=== PATIENT | male | born 1950 | race African-American/Black ===

== ENCOUNTER 2016-04-17 02:27 | Inpatient (IN) | payer OTHER ==
[~2016-04-17] VITALS: Ht 144.8 cm; Wt 98.0 kg
[2016-04-17] VITALS (22 sets, daily range): BP systolic 73–128; BP diastolic 49–65
[~2016-04-17 02:27] MED LIST: CALCIUM ACETAT667 M2 PO; COUMADIN2 MG PO; COUMADIN5 MG PO; COZAAR25 MG PO; DIGOX125 MCG PO; DIGOXIN125 MCG PO; HYDROCODON-ACE1 EAC7 PO; KEFLEX500 MG PO; LOPRESSOR100 M1 PO; LOPRESSOR25 MG PO; LOPRESSOR50 MG PO; MECLIZINE HCL12.5 M1 PO; METOPROLOL TART25 MG PO; NEURONTIN100 MG PO; NORVASC10 MG PO; NOVOLOG MI100 UNIT/4 SC; OXYCODONE; PERCOCET 5/31 TABLET PO; SENSIPAR30 MG PO; ZOCOR5 MG PO
[2016-04-17] MEDS ORDERED: WARFARIN SODIUM1 MG PO (02:57)
[2016-04-17] MEDS ORDERED: GABAPENTIN100 MG PO (02:58)
[2016-04-17] MEDS ORDERED: LOPRESSOR25 MG PO (02:58)
[2016-04-17] MEDS ORDERED: OXYCODONE HCL5 MG PO (02:59)
[2016-04-17] MEDS ORDERED: VENTOLIN HFA18 GM IH (02:59)
[2016-04-17] MEDS ORDERED: SENSIPAR30 MG PO (03:00)
[2016-04-17 03:23] LABS: VENOUS PCO2 46 mm Hg (41-51)
[2016-04-17 03:33] LABS: CARBON DIOXIDE (BICARBONATE) > 40.0 MEQ/L (20-31)
[2016-04-17 03:35] LABS: CHLORIDE 91 mEq/L (99-109); POTASSIUM 3.4 mEq/L (3.7-5.4); SODIUM 138 mEq/L (136-147)
[2016-04-17 03:37] LABS: GLUCOSE 123 mg/dL (70-99)
[2016-04-17 03:38] LABS: ANION GAP 18 MEQ/L (2-14)
[2016-04-17 03:41] LABS: GFR ESTIMATE (CALCULATED) 16 mL/min/
[2016-04-17 03:42] LABS: UREA NITROGEN (BUN) 12 mg/dL (9-23)
[2016-04-17 03:44] LABS: TROP-I INTERPRETATION NEGATIVE; TROPONIN-I 0.04 ng/mL (0.0-0.30)
[2016-04-17 04:40] LABS: HEMATOCRIT 41.1 % (38.0-50.0); MCHC 32.8 G/DL (30.0-36.0); MCV 85.1 FL (86-99); RBC DIS.WIDTH-CV 16.9 % (11.8-14.6); RBC DIS.WIDTH-SD 52.2 % (39-53); RED BLOOD COUNT 4.83 M/uL (4.00-5.50)
[2016-04-17 04:49] LABS: WHITE BLOOD COUNT 6.9 K/uL (4.1-10.2)
[2016-04-17 05:23] LABS: HEMATOLOGY COMMENT 1 REV; PLATELET COUNT 102 K/uL (156-360)
[2016-04-17 08:56] LABS: METH RESISTANT S AUREUS PCR POSITIVE (NEGATIVE)
[2016-04-17 08:57] LABS: PROBE CHECK PASS
[2016-04-17 11:32] LABS: ALKALINE PHOSPHATASE 155 IU/L (3-129); DIRECT BILIRUBIN 1.5 mg/dL (0.0-0.3); MAGNESIUM 1.9 mg/dl (1.3-2.7); SAMPLE HEMOLYSIS CHECK 0; SAMPLE ICTERIC CHECK 1; SAMPLE LIPEMIA CHECK 0; TOTAL BILIRUBIN 3.4 MG/DL (0.0-1.0)
[2016-04-17 12:44] LABS: CK-MB 3.1 ng/mL (0.0-4.9)
[2016-04-17 12:46] LABS: CREATINE KINASE 110 IU/L (1-294); TOTAL CK 110 IU/L (1-294)
[2016-04-17 13:03] LABS: TROP-I INTERPRETATION POSITIVE
[2016-04-17 13:05] LABS: TROPONIN-I 1.14 ng/mL (0.0-0.30)
[2016-04-17 13:11] LABS: POINT-OF-CARE METER ID UU14174217
[2016-04-17 17:32] LABS: POINT-OF-CARE METER ID UU14174217
[2016-04-17 19:02] LABS: TROP-I INTERPRETATION POSITIVE
[2016-04-17 19:05] LABS: TROPONIN-I 1.65 ng/mL (0.0-0.30)
[2016-04-17 19:16] LABS: CK-MB 3.4 ng/mL (0.0-4.9)
[2016-04-17 19:39] LABS: CREATINE KINASE 101 IU/L (1-294); TOTAL CK 101 IU/L (1-294)
[2016-04-17 23:56] LABS: POINT-OF-CARE METER ID UU14174217
[2016-04-18] VITALS (19 sets, daily range): BP systolic 77–155; BP diastolic 50–97
[2016-04-18 00:37] LABS: CREATINE KINASE 120 IU/L (1-294); TOTAL CK 120 IU/L (1-294)
[2016-04-18 00:41] LABS: TROP-I INTERPRETATION POSITIVE
[2016-04-18 00:42] LABS: CK-MB 3.3 ng/mL (0.0-4.9)
[2016-04-18 00:51] LABS: TROPONIN-I 1.77 ng/mL (0.0-0.30)
[2016-04-18 04:51] LABS: BASOPHIL COUNT 0.1 K/uL (0-0.1); EOSINOPHIL (%) 3.2 % (0-5); EOSINOPHIL COUNT 0.2 K/uL (0-0.3); HEMATOCRIT 41.1 % (38.0-50.0); IMMATURE GRANULOCYTE (%) 0.4 % (0.0-0.7); IMMATURE GRANULOCYTE COUNT 0.2 K/uL; LYMPHOCYTE COUNT 0.9 K/uL (1.0-2.8); MCH 27.3 PG (29.0-34.0); MCHC 32.4 G/DL (30.0-36.0); MCV 84.4 FL (86-99); MEAN PLAT.VOLUME 12.3 uM^3 (9.0-12.4); MONOCYTE (%) 11.7 % (3-12); MONOCYTE COUNT 0.6 K/uL (0-0.8); NEUTROPHIL (%) 64.7 % (45-76); NEUTROPHIL COUNT 3.1 K/uL (1.8-6.4); PLATELET COUNT 130 K/uL (156-360); RBC DIS.WIDTH-CV 17.7 % (11.8-14.6); RBC DIS.WIDTH-SD 53.5 % (39-53); RED BLOOD COUNT 4.87 M/uL (4.00-5.50); WHITE BLOOD COUNT 4.7 K/uL (4.1-10.2)
[2016-04-18 05:03] LABS: CHLORIDE 93 mEq/L (99-109); POTASSIUM 3.6 mEq/L (3.7-5.4); SODIUM 139 mEq/L (136-147)
[2016-04-18 05:04] LABS: MAGNESIUM 1.9 mg/dL (1.3-2.7)
[2016-04-18 05:07] LABS: ANION GAP 12 MEQ/L (2-14); GLUCOSE 75 mg/dL (70-99)
[2016-04-18 05:09] LABS: GFR ESTIMATE (CALCULATED) 12 mL/min/
[2016-04-18 05:10] LABS: UREA NITROGEN (BUN) 20 mg/dL (9-23)
[2016-04-18 05:11] LABS: CK-MB 2.4 ng/mL (0.0-4.9)
[2016-04-18 05:12] LABS: CREATINE KINASE 118 IU/L (1-294); TOTAL CK 118 IU/L (1-294)
[2016-04-18 05:23] LABS: TROP-I INTERPRETATION POSITIVE
[2016-04-18 05:26] LABS: TROPONIN-I 1.53 ng/mL (0.0-0.30)
[2016-04-18 12:57] LABS: BASE EXCESS -1.4 mEq/L (-3 to +3); BICARBONATE 21.1 mEq/L (22-26); CARBOXY HGB 2.6 % (0-5); METHEMOGLOBIN 1.2 % (0-1.5); PCO2 29 mm Hg (35-45); PO2 320 mm Hg (80-100); pH 7.47 (7.35-7.45)
[2016-04-18 12:58] LABS: DEVICE VENT; FI02 100 %; MECHANICAL RATE 14 resp/min; MODE A/C; PEEP 5 CM/H20; SITE A LINE; TIDAL VOLUME 400 ML; TOTAL RESP RATE 30 resp/min
[2016-04-18 17:56] LABS: POINT-OF-CARE METER ID UU13113731
[2016-04-19] VITALS (11 sets, daily range): BP systolic 104–122; BP diastolic 52–65
[2016-04-19 06:14] LABS: ANION GAP 19 MEQ/L (2-14); CHLORIDE 92 MEQ/L (99-109); GFR ESTIMATE (CALCULATED) 11 mL/min/; MAGNESIUM 1.9 mg/dl (1.3-2.7); POTASSIUM 3.7 MEQ/L (3.7-5.4); SAMPLE HEMOLYSIS CHECK 0; SAMPLE ICTERIC CHECK 0; SAMPLE LIPEMIA CHECK 0; SODIUM 136 MEQ/L (136-147); UREA NITROGEN (BUN) 26 mg/dL (9-23)
[2016-04-19 06:15] LABS: GLUCOSE 150 mg/dL (70-99)
[2016-04-19 06:34] LABS: HEMATOLOGY COMMENT 1 REV; PLAT.SUFFICIENCY ADEQUATE
[2016-04-19 06:35] LABS: BASOPHIL COUNT 0.1 K/uL (0-0.1); EOSINOPHIL (%) 1.4 % (0-5); EOSINOPHIL COUNT 0.1 K/uL (0-0.3); HEMATOCRIT 44.9 % (38.0-50.0); IMMATURE GRANULOCYTE (%) 0.3 % (0.0-0.7); LYMPHOCYTE COUNT 1.4 K/uL (1.0-2.8); MCH 27.9 PG (29.0-34.0); MCHC 33.4 G/DL (30.0-36.0); MCV 83.5 FL (86-99); MEAN PLAT.VOLUME 11.9 uM^3 (9.0-12.4); MONOCYTE (%) 10.5 % (3-12); MONOCYTE COUNT 0.8 K/uL (0-0.8); NEUTROPHIL (%) 67.6 % (45-76); NEUTROPHIL COUNT 4.9 K/uL (1.8-6.4); PLATELET COUNT 195 K/uL (156-360); RBC DIS.WIDTH-CV 17.2 % (11.8-14.6); RBC DIS.WIDTH-SD 51.9 % (39-53); RED BLOOD COUNT 5.38 M/uL (4.00-5.50); WHITE BLOOD COUNT 7.2 K/uL (4.1-10.2)
[2016-04-19 12:50] LABS: TROP-I INTERPRETATION POSITIVE
[2016-04-19 13:00] LABS: POINT-OF-CARE METER ID UU14162636
[2016-04-19 18:28] LABS: POINT-OF-CARE METER ID UU14162636
[2016-04-19 21:21] LABS: TROP-I INTERPRETATION POSITIVE
[2016-04-19 21:24] LABS: TROPONIN-I 1.52 ng/mL (0.0-0.30)
[2016-04-20] VITALS (8 sets, daily range): BP systolic 0–126; BP diastolic 0–64
[2016-04-20 07:08] LABS: ANION GAP 20 MEQ/L (2-14); CHLORIDE 96 MEQ/L (99-109); GFR ESTIMATE (CALCULATED) 14 mL/min/; GLUCOSE 199 mg/dL (70-99); MAGNESIUM 1.9 mg/dl (1.3-2.7); POTASSIUM 3.9 MEQ/L (3.7-5.4); SAMPLE HEMOLYSIS CHECK 0; SAMPLE ICTERIC CHECK 0; SAMPLE LIPEMIA CHECK 0; SODIUM 137 MEQ/L (136-147); UREA NITROGEN (BUN) 20 mg/dL (9-23)
[2016-04-20 09:42] LABS: BASE EXCESS -3.4 mEq/L (-3 to +3); BICARBONATE 20.3 mEq/L (22-26); CARBOXY HGB 2.1 % (0-5); METHEMOGLOBIN 1.3 % (0-1.5); PCO2 32 mm Hg (35-45); pH 7.41 (7.35-7.45)
[2016-04-20 09:43] LABS: COMMENTS - BLOOD GASES C+; CONTINUOUS POS AIRWAY PRESSURE 5 cm H2O; DEVICE 840 VENTILATOR; FI02 35 %; MODE SPONT; PO2 89 mm Hg (80-100); PRES. SUPPORT 5 CM/H2O; SITE RT FEMORAL ALINE; TOTAL RESP RATE 24 resp/min
[2016-04-20 12:01] LABS: BASE EXCESS -4.4 mEq/L (-3 to +3); BICARBONATE 18.3 mEq/L (22-26); METHEMOGLOBIN 1.3 % (0-1.5); PCO2 27 mm Hg (35-45); PO2 103 mm Hg (80-100); pH 7.44 (7.35-7.45)
[2016-04-20 12:02] LABS: COMMENTS - BLOOD GASES C+; CONTINUOUS POS AIRWAY PRESSURE 5 cm H2O; DEVICE 840 VENTILATOR; FI02 35 %; MODE SPONT; PRES. SUPPORT 5 CM/H2O; SITE RT FEMORAL ALINE; TOTAL RESP RATE 23 resp/min
[2016-04-21] VITALS (10 sets, daily range): BP systolic 95–124; BP diastolic 51–71
[2016-04-21 05:04] LABS: CHLORIDE 100 mEq/L (99-109); MAGNESIUM 1.8 mg/dL (1.3-2.7); POTASSIUM 3.9 mEq/L (3.7-5.4); SODIUM 139 mEq/L (136-147)
[2016-04-21 05:06] LABS: GLUCOSE 164 mg/dL (70-99)
[2016-04-21 05:07] LABS: ANION GAP 18 MEQ/L (2-14)
[2016-04-21 05:10] LABS: GFR ESTIMATE (CALCULATED) 11 mL/min/; UREA NITROGEN (BUN) 27 mg/dL (9-23)
[2016-04-21 06:22] LABS: EOSINOPHIL (%) 1.7 % (0-5); EOSINOPHIL COUNT 0.1 K/uL (0-0.3); HEMATOCRIT 39.7 % (38.0-50.0); IMMATURE GRANULOCYTE (%) 0.2 % (0.0-0.7); IMMATURE GRANULOCYTE COUNT 0.1 K/uL; LYMPHOCYTE COUNT 0.7 K/uL (1.0-2.8); MCHC 33.5 G/DL (30.0-36.0); MCV 80.7 FL (86-99); MONOCYTE COUNT 0.6 K/uL (0-0.8); NEUTROPHIL (%) 70.6 % (45-76); NEUTROPHIL COUNT 3.3 K/uL (1.8-6.4); RBC DIS.WIDTH-CV 17.4 % (11.8-14.6); RBC DIS.WIDTH-SD 49.6 % (39-53); RED BLOOD COUNT 4.92 M/uL (4.00-5.50)
[2016-04-21 06:25] LABS: WHITE BLOOD COUNT 4.6 K/uL (4.1-10.2)
[2016-04-21 06:41] LABS: HEMATOLOGY COMMENT 1 REV; MEAN PLAT.VOLUME 10.8 uM^3 (9.0-12.4); PLAT.SUFFICIENCY ADEQUATE
[2016-04-21 06:42] LABS: PLATELET COUNT 123 K/uL (156-360)
[2016-04-21 11:35] LABS: AHBS INDEX 747.58; HBSG INDEX 0.18; HEPATITIS B SURFACE ANTIBODY REACTIVE
[2016-04-21] MEDS ORDERED: COZAAR50 MG PO (11:48)
[2016-04-21] MEDS ORDERED: ANTIVERT12.5 MG PO (11:48)
[2016-04-21] MEDS ORDERED: LANOXIN125 MCG PO (11:49)
[2016-04-21] MEDS ORDERED: MORPHINE SULFAT15 M1 PO (11:50)
[2016-04-21] MEDS ORDERED: DIALYVITE 3,001 EACH PO (11:51)
[2016-04-21 13:38] LABS: POINT-OF-CARE METER ID UU13113803
[2016-04-21 18:03] LABS: POINT-OF-CARE METER ID UU13113803
[2016-04-21 23:54] LABS: POINT-OF-CARE METER ID UU13113803
[2016-04-22] VITALS (21 sets, daily range): BP systolic 88–122; BP diastolic 47–66
[2016-04-22 06:18] LABS: POINT-OF-CARE METER ID UU14174217
[2016-04-22 08:49] LABS: EOSINOPHIL (%) 1.3 % (0-5); EOSINOPHIL COUNT 0.1 K/uL (0-0.3); IMMATURE GRANULOCYTE (%) 0.2 % (0.0-0.7); LYMPHOCYTE COUNT 0.5 K/uL (1.0-2.8); MONOCYTE (%) 6.4 % (3-12); MONOCYTE COUNT 0.3 K/uL (0-0.8); NEUTROPHIL (%) 82.1 % (45-76); NEUTROPHIL COUNT 3.9 K/uL (1.8-6.4)
[2016-04-22 09:01] LABS: ANION GAP 19 MEQ/L (2-14); CHLORIDE 97 MEQ/L (99-109); GFR ESTIMATE (CALCULATED) 13 mL/min/; GLUCOSE 148 mg/dL (70-99); MAGNESIUM 1.9 mg/dl (1.3-2.7); POTASSIUM 4.2 MEQ/L (3.7-5.4); SAMPLE HEMOLYSIS CHECK 0; SAMPLE ICTERIC CHECK 0; SAMPLE LIPEMIA CHECK 0; SODIUM 139 MEQ/L (136-147); UREA NITROGEN (BUN) 22 mg/dL (9-23)
[2016-04-22 09:10] LABS: HEMATOCRIT 37.7 % (38.0-50.0); MCH 26.6 PG (29.0-34.0); MCHC 32.4 G/DL (30.0-36.0); MCV 82.3 FL (86-99); RBC DIS.WIDTH-CV 16.9 % (11.8-14.6); RBC DIS.WIDTH-SD 50.1 % (39-53); RED BLOOD COUNT 4.58 M/uL (4.00-5.50); WHITE BLOOD COUNT 4.7 K/uL (4.1-10.2)
[2016-04-22 09:51] LABS: PLAT.SUFFICIENCY DECREASED; PLATELET COUNT 101 K/uL (156-360); USER ID TLW
[2016-04-22 10:19] LABS: DIGOXIN > 4.0 ng/mL (0.8-2.0)
[2016-04-22 12:23] LABS: POINT-OF-CARE METER ID UU14174217; POINT-OF-CARE USER ID NUTJLF39
[2016-04-22 17:42] LABS: POINT-OF-CARE METER ID UU14174217; POINT-OF-CARE USER ID NUTJLF39
[2016-04-23] VITALS (12 sets, daily range): BP systolic 0–99; BP diastolic 0–50
[2016-04-23 00:02] LABS: POINT-OF-CARE METER ID UU14174217
[2016-04-23 07:30] LABS: INTER. NORMALIZED RATIO 2.7; PROTHROMBIN TIME 28.8 (9.2-11.2)
[2016-04-23 09:42] LABS: HEMATOCRIT 36.5 % (38.0-50.0); MCH 27.5 PG (29.0-34.0); MCHC 33.4 G/DL (30.0-36.0); MCV 82.2 FL (86-99); RBC DIS.WIDTH-CV 17.3 % (11.8-14.6); RBC DIS.WIDTH-SD 50.5 % (39-53); RED BLOOD COUNT 4.44 M/uL (4.00-5.50); WHITE BLOOD COUNT 4.3 K/uL (4.1-10.2)
[2016-04-23 09:46] LABS: ANION GAP 16 MEQ/L (2-14); CHLORIDE 98 MEQ/L (99-109); GFR ESTIMATE (CALCULATED) 11 mL/min/; GLUCOSE 117 mg/dL (70-99); SAMPLE HEMOLYSIS CHECK 0; SAMPLE ICTERIC CHECK 0; SAMPLE LIPEMIA CHECK 0; SODIUM 139 MEQ/L (136-147); UREA NITROGEN (BUN) 27 mg/dL (9-23)
[2016-04-23 09:48] LABS: PLATELET COUNT 97 K/uL (156-360)
[2016-04-23 13:17] LABS: POINT-OF-CARE METER ID UU13113731
[2016-04-23 14:11] LABS: INTER. NORMALIZED RATIO 2.5; PROTHROMBIN TIME 26.7 (9.2-11.2)
[2016-04-23 18:11] LABS: POINT-OF-CARE METER ID UU13113731
[2016-04-24] VITALS (11 sets, daily range): BP systolic 77–109; BP diastolic 35–51
[2016-04-24 01:12] LABS: POINT-OF-CARE METER ID UU13113731
[2016-04-24 05:52] LABS: INTER. NORMALIZED RATIO 2.3; PROTHROMBIN TIME 23.5 (9.2-11.2); PTT 78.1 (25-32)
[2016-04-24 06:07] LABS: ANION GAP 13 MEQ/L (2-14); CHLORIDE 99 MEQ/L (99-109); GFR ESTIMATE (CALCULATED) 14 mL/min/; GLUCOSE 70 mg/dL (70-99); POTASSIUM 3.7 MEQ/L (3.7-5.4); SAMPLE HEMOLYSIS CHECK 0; SAMPLE ICTERIC CHECK 0; SAMPLE LIPEMIA CHECK 0; SODIUM 139 MEQ/L (136-147); UREA NITROGEN (BUN) 20 mg/dL (9-23)
[2016-04-24 07:09] LABS: EOSINOPHIL (%) 3.9 % (0-5); EOSINOPHIL COUNT 0.2 K/uL (0-0.3); HEMATOCRIT 37.2 % (38.0-50.0); IMMATURE GRANULOCYTE (%) 0.2 % (0.0-0.7); LYMPHOCYTE COUNT 0.7 K/uL (1.0-2.8); MCH 26.7 PG (29.0-34.0); MCHC 32.5 G/DL (30.0-36.0); MCV 82.1 FL (86-99); MONOCYTE (%) 12.1 % (3-12); MONOCYTE COUNT 0.5 K/uL (0-0.8); NEUTROPHIL (%) 67.1 % (45-76); NEUTROPHIL COUNT 2.8 K/uL (1.8-6.4); PLAT.SUFFICIENCY DECREASED; PLATELET COUNT 96 K/uL (156-360); RBC DIS.WIDTH-CV 17.3 % (11.8-14.6); RED BLOOD COUNT 4.53 M/uL (4.00-5.50); USER ID SDF; WHITE BLOOD COUNT 4.1 K/uL (4.1-10.2)
[2016-04-25] VITALS (9 sets, daily range): BP systolic 95–126; BP diastolic 43–64
[2016-04-25 05:52] LABS: INTER. NORMALIZED RATIO 2.4; PROTHROMBIN TIME 25.2 (9.2-11.2)
[2016-04-25 06:21] LABS: ANION GAP 14 MEQ/L (2-14); CHLORIDE 98 MEQ/L (99-109); GFR ESTIMATE (CALCULATED) 11 mL/min/; MAGNESIUM 2.1 mg/dl (1.3-2.7); SAMPLE HEMOLYSIS CHECK 0; SAMPLE ICTERIC CHECK 0; SAMPLE LIPEMIA CHECK 0; SODIUM 139 MEQ/L (136-147); UREA NITROGEN (BUN) 25 mg/dL (9-23)
[2016-04-25 06:22] LABS: GLUCOSE 103 mg/dL (70-99)
[2016-04-25 06:49] LABS: EOSINOPHIL (%) 4.5 % (0-5); EOSINOPHIL COUNT 0.2 K/uL (0-0.3); IMMATURE GRANULOCYTE (%) 0.3 % (0.0-0.7); LYMPHOCYTE COUNT 0.7 K/uL (1.0-2.8); MONOCYTE (%) 11.7 % (3-12); MONOCYTE COUNT 0.4 K/uL (0-0.8); NEUTROPHIL (%) 64.9 % (45-76); NEUTROPHIL COUNT 2.4 K/uL (1.8-6.4)
[2016-04-25 06:56] LABS: HEMATOCRIT 37.8 % (38.0-50.0); MCH 26.6 PG (29.0-34.0); MCHC 32.3 G/DL (30.0-36.0); MCV 82.4 FL (86-99); RBC DIS.WIDTH-CV 17.6 % (11.8-14.6); RED BLOOD COUNT 4.59 M/uL (4.00-5.50); WHITE BLOOD COUNT 3.8 K/uL (4.1-10.2)
[2016-04-25 07:50] LABS: PLAT.SUFFICIENCY DECREASED; PLATELET COUNT 102 K/uL (156-360); USER ID SDF
[2016-04-26] VITALS (8 sets, daily range): BP systolic 92–116; BP diastolic 35–79
[2016-04-26 06:01] LABS: NRBC (%) 0.5 /100 WBC (0-0)
[2016-04-26 06:30] LABS: ALKALINE PHOSPHATASE 109 IU/L (3-129); ANION GAP 14 MEQ/L (2-14); CHLORIDE 99 MEQ/L (99-109); GFR ESTIMATE (CALCULATED) 10 mL/min/; GLUCOSE 79 mg/dL (70-99); MAGNESIUM 2.2 mg/dl (1.3-2.7); POTASSIUM 4.1 MEQ/L (3.7-5.4); SAMPLE HEMOLYSIS CHECK 0; SAMPLE ICTERIC CHECK 0; SAMPLE LIPEMIA CHECK 0; SODIUM 138 MEQ/L (136-147); UREA NITROGEN (BUN) 31 mg/dL (9-23)
[2016-04-26 06:43] LABS: EOSINOPHIL (%) 2.3 % (0-5); EOSINOPHIL COUNT 0.1 K/uL (0-0.3); HEMATOCRIT 40.1 % (38.0-50.0); IMMATURE GRANULOCYTE (%) 0.5 % (0.0-0.7); LYMPHOCYTE COUNT 0.8 K/uL (1.0-2.8); MCH 27.7 PG (29.0-34.0); MCHC 33.4 G/DL (30.0-36.0); MONOCYTE (%) 8.7 % (3-12); MONOCYTE COUNT 0.4 K/uL (0-0.8); NEUTROPHIL (%) 69.2 % (45-76); RBC DIS.WIDTH-CV 17.9 % (11.8-14.6); RBC DIS.WIDTH-SD 51.8 % (39-53); RED BLOOD COUNT 4.83 M/uL (4.00-5.50); WHITE BLOOD COUNT 4.4 K/uL (4.1-10.2)
[2016-04-26 06:47] LABS: INTER. NORMALIZED RATIO 2.7; PROTHROMBIN TIME 28.6 (9.2-11.2)
[2016-04-26 06:52] LABS: HEMATOLOGY COMMENT 1 REV; USER ID NJR
[2016-04-26 06:55] LABS: PLATELET COUNT 121 K/uL (156-360)
[2016-04-26 10:34] LABS: DIGOXIN 3.4 ng/mL (0.8-2.0)
[2016-04-26 12:30] LABS: POINT-OF-CARE METER ID UU13113803
[2016-04-26 17:50] LABS: POINT-OF-CARE METER ID UU13113803
[2016-04-26 19:40] LABS: AHBS INDEX 698.74; HBSG INDEX 0.17; HEPATITIS B SURFACE ANTIBODY REACTIVE
[2016-04-26 22:39] LABS: POINT-OF-CARE METER ID UU13113803
[2016-04-27] VITALS (7 sets, daily range): BP systolic 95–145; BP diastolic 39–55
[2016-04-27 05:45] LABS: INTER. NORMALIZED RATIO 3.4; PROTHROMBIN TIME 36.2 (9.2-11.2)
[2016-04-27 06:02] LABS: ALKALINE PHOSPHATASE 113 IU/L (3-129); ANION GAP 18 MEQ/L (2-14); CHLORIDE 100 MEQ/L (99-109); GFR ESTIMATE (CALCULATED) 12 mL/min/; GLUCOSE 205 mg/dL (70-99); MAGNESIUM 2.2 mg/dl (1.3-2.7); POTASSIUM 5.2 MEQ/L (3.7-5.4); SAMPLE HEMOLYSIS CHECK 0; SAMPLE ICTERIC CHECK 0; SAMPLE LIPEMIA CHECK 0; SODIUM 143 MEQ/L (136-147); TOTAL BILIRUBIN 2.4 MG/DL (0.0-1.0); UREA NITROGEN (BUN) 25 mg/dL (9-23)
[2016-04-27 06:06] LABS: EOSINOPHIL (%) 1.1 % (0-5); EOSINOPHIL COUNT 0.1 K/uL (0-0.3); HEMATOCRIT 42.2 % (38.0-50.0); HEMATOLOGY COMMENT 1 REV; IMMATURE GRANULOCYTE (%) 0.4 % (0.0-0.7); LYMPHOCYTE COUNT 0.8 K/uL (1.0-2.8); MCH 26.8 PG (29.0-34.0); MCHC 32.2 G/DL (30.0-36.0); MCV 83.1 FL (86-99); MONOCYTE (%) 11.3 % (3-12); MONOCYTE COUNT 0.5 K/uL (0-0.8); NEUTROPHIL (%) 68.3 % (45-76); NEUTROPHIL COUNT 3.1 K/uL (1.8-6.4); PLATELET COUNT 111 K/uL (156-360); RBC DIS.WIDTH-CV 17.9 % (11.8-14.6); RBC DIS.WIDTH-SD 51.5 % (39-53); RED BLOOD COUNT 5.08 M/uL (4.00-5.50); USER ID SLU; WHITE BLOOD COUNT 4.6 K/uL (4.1-10.2)
[2016-04-27 08:52] LABS: POINT-OF-CARE METER ID UU13113731
[2016-04-27 12:20] LABS: POINT-OF-CARE METER ID UU13113731
[2016-04-27 17:30] LABS: POINT-OF-CARE METER ID UU13113731
[2016-04-27 21:58] LABS: POINT-OF-CARE METER ID UU13113748
[2016-04-28] VITALS: BP 138/51
[2016-04-28 04:00] VITALS: BP 132/56
[2016-04-28 05:51] LABS: INTER. NORMALIZED RATIO 3.7; PROTHROMBIN TIME 38.9 (9.2-11.2)
[2016-04-28 05:54] LABS: ALKALINE PHOSPHATASE 103 IU/L (3-129); ANION GAP 12 MEQ/L (2-14); CHLORIDE 102 MEQ/L (99-109); GFR ESTIMATE (CALCULATED) 10 mL/min/; GLUCOSE 170 mg/dL (70-99); MAGNESIUM 2.1 mg/dl (1.3-2.7); POTASSIUM 4.5 MEQ/L (3.7-5.4); SAMPLE HEMOLYSIS CHECK 0; SAMPLE ICTERIC CHECK 0; SAMPLE LIPEMIA CHECK 0; SODIUM 142 MEQ/L (136-147); TOTAL BILIRUBIN 2.1 MG/DL (0.0-1.0); UREA NITROGEN (BUN) 28 mg/dL (9-23)
[2016-04-28 06:46] LABS: EOSINOPHIL (%) 2.7 % (0-5); EOSINOPHIL COUNT 0.1 K/uL (0-0.3); HEMATOCRIT 38.5 % (38.0-50.0); IMMATURE GRANULOCYTE (%) 0.4 % (0.0-0.7); LYMPHOCYTE COUNT 0.7 K/uL (1.0-2.8); MCH 26.8 PG (29.0-34.0); MCHC 32.5 G/DL (30.0-36.0); MCV 82.6 FL (86-99); MONOCYTE (%) 10.9 % (3-12); MONOCYTE COUNT 0.6 K/uL (0-0.8); NEUTROPHIL (%) 72.7 % (45-76); NEUTROPHIL COUNT 3.8 K/uL (1.8-6.4); RBC DIS.WIDTH-CV 18.3 % (11.8-14.6); RBC DIS.WIDTH-SD 52.3 % (39-53); RED BLOOD COUNT 4.66 M/uL (4.00-5.50); WHITE BLOOD COUNT 5.2 K/uL (4.1-10.2)
[2016-04-28 06:58] LABS: DIGOXIN 2.7 ng/mL (0.8-2.0)
[2016-04-28 06:59] LABS: PLAT.SUFFICIENCY DECREASED; PLATELET COUNT 125 K/uL (156-360); USER ID SDF
[2016-04-28 13:00] VITALS: BP 80/57
[2016-04-28 13:03] LABS: POINT-OF-CARE METER ID UU14174217
[2016-04-28 16:00] VITALS: BP 99/49
[2016-04-28 18:15] VITALS: BP 108/48
[2016-04-28 20:00] VITALS: BP 108/48
[2016-04-28 23:58] LABS: POINT-OF-CARE METER ID UU14174217
[2016-04-29] VITALS: BP 106/58
[2016-04-29 04:00] VITALS: BP 122/51
[2016-04-29 04:36] LABS: INTER. NORMALIZED RATIO 3.2; PROTHROMBIN TIME 33.3 (9.2-11.2)
[2016-04-29 04:39] LABS: CHLORIDE 103 mEq/L (99-109); POTASSIUM 4.3 mEq/L (3.7-5.4); SODIUM 140 mEq/L (136-147)
[2016-04-29 04:40] LABS: MAGNESIUM 1.8 mg/dL (1.3-2.7)
[2016-04-29 04:42] LABS: GLUCOSE 137 mg/dL (70-99)
[2016-04-29 04:43] LABS: ANION GAP 12 MEQ/L (2-14)
[2016-04-29 04:44] LABS: TOTAL BILIRUBIN 1.9 mg/dL (0.0-1.0)
[2016-04-29 04:45] LABS: ALKALINE PHOSPHATASE 110 IU/L (3-129); GFR ESTIMATE (CALCULATED) 11 mL/min/
[2016-04-29 04:47] LABS: UREA NITROGEN (BUN) 22 mg/dL (9-23)
[2016-04-29 05:04] LABS: HEMATOLOGY COMMENT 1 UNABLE TO REPORT; USER ID WCD
[2016-04-29 05:05] LABS: EOSINOPHIL (%) 2.7 % (0-5); EOSINOPHIL COUNT 0.1 K/uL (0-0.3); HEMATOCRIT 36.5 % (38.0-50.0); IMMATURE GRANULOCYTE (%) 0.2 % (0.0-0.7); IMMATURE GRANULOCYTE COUNT 0.1 K/uL; LYMPHOCYTE COUNT 0.7 K/uL (1.0-2.8); MCH 27.2 PG (29.0-34.0); MCHC 33.2 G/DL (30.0-36.0); MONOCYTE (%) 10.3 % (3-12); MONOCYTE COUNT 0.5 K/uL (0-0.8); NEUTROPHIL COUNT 3.1 K/uL (1.8-6.4); RBC DIS.WIDTH-CV 18.7 % (11.8-14.6); RBC DIS.WIDTH-SD 51.5 % (39-53); RED BLOOD COUNT 4.45 M/uL (4.00-5.50); WHITE BLOOD COUNT 4.4 K/uL (4.1-10.2)
[2016-04-29 09:10] VITALS: BP 93/49
[2016-04-29 12:00] VITALS: BP 105/57
[2016-04-29 12:34] LABS: POINT-OF-CARE METER ID UU13113748
[2016-04-29 16:00] VITALS: BP 119/66
[2016-04-29 16:56] LABS: POINT-OF-CARE METER ID UU14174217
[2016-04-29 20:00] VITALS: BP 92/38
[2016-04-29 21:39] LABS: POINT-OF-CARE METER ID UU13113748
[2016-04-30 00:17] VITALS: BP 129/69
[2016-04-30 03:54] VITALS: BP 130/70
[2016-04-30 06:16] LABS: INTER. NORMALIZED RATIO 2.3; PROTHROMBIN TIME 23.6 (9.2-11.2)
[2016-04-30 06:41] LABS: EOSINOPHIL (%) 2.2 % (0-5); EOSINOPHIL COUNT 0.1 K/uL (0-0.3); HEMATOLOGY COMMENT 1 SLU; IMMATURE GRANULOCYTE (%) 0.2 % (0.0-0.7); LYMPHOCYTE COUNT 0.9 K/uL (1.0-2.8); MONOCYTE COUNT 0.5 K/uL (0-0.8); NEUTROPHIL (%) 67.6 % (45-76); PLAT.SUFFICIENCY ADEQUATE; PLATELET COUNT 129 K/uL (156-360)
[2016-04-30 06:43] LABS: HEMATOCRIT 38.5 % (38.0-50.0); MCH 27.5 PG (29.0-34.0); MCV 83.5 FL (86-99); RBC DIS.WIDTH-CV 19.1 % (11.8-14.6); RBC DIS.WIDTH-SD 54.5 % (39-53); RED BLOOD COUNT 4.61 M/uL (4.00-5.50); WHITE BLOOD COUNT 4.5 K/uL (4.1-10.2)
[2016-04-30 06:44] LABS: ANION GAP 13 MEQ/L (2-14); CHLORIDE 99 MEQ/L (99-109); GFR ESTIMATE (CALCULATED) 10 mL/min/; GLUCOSE 126 mg/dL (70-99); MAGNESIUM 2.1 mg/dl (1.3-2.7); SAMPLE HEMOLYSIS CHECK 0; SAMPLE ICTERIC CHECK 0; SAMPLE LIPEMIA CHECK 0; SODIUM 142 MEQ/L (136-147); UREA NITROGEN (BUN) 28 mg/dL (9-23)
[2016-04-30 07:55] VITALS: BP 132/78
[2016-04-30 17:10] VITALS: BP 92/50
[2016-04-30 19:39] VITALS: BP 98/50
[2016-04-30 20:59] VITALS: BP 122/55
[2016-05-01] VITALS (9 sets, daily range): BP systolic 108–122; BP diastolic 47–69
[2016-05-01 06:42] LABS: ANION GAP 13 MEQ/L (2-14); CHLORIDE 97 MEQ/L (99-109); GFR ESTIMATE (CALCULATED) 12 mL/min/; GLUCOSE 184 mg/dL (70-99); MAGNESIUM 2.1 mg/dl (1.3-2.7); POTASSIUM 4.6 MEQ/L (3.7-5.4); SAMPLE HEMOLYSIS CHECK 0; SAMPLE ICTERIC CHECK 0; SAMPLE LIPEMIA CHECK 0; SODIUM 138 MEQ/L (136-147); UREA NITROGEN (BUN) 24 mg/dL (9-23)
[2016-05-01 07:34] LABS: EOSINOPHIL COUNT 0.1 K/uL (0-0.3); IMMATURE GRANULOCYTE (%) 0.2 % (0.0-0.7); LYMPHOCYTE COUNT 1.1 K/uL (1.0-2.8); MCH 28.2 PG (29.0-34.0); MCHC 33.9 G/DL (30.0-36.0); MCV 83.2 FL (86-99); MONOCYTE (%) 9.1 % (3-12); MONOCYTE COUNT 0.5 K/uL (0-0.8); NEUTROPHIL COUNT 3.5 K/uL (1.8-6.4); RBC DIS.WIDTH-CV 19.5 % (11.8-14.6); RBC DIS.WIDTH-SD 55.2 % (39-53); RED BLOOD COUNT 4.93 M/uL (4.00-5.50); WHITE BLOOD COUNT 5.2 K/uL (4.1-10.2)
[2016-05-01 08:21] LABS: PLAT.SUFFICIENCY DECREASED; PLATELET COUNT 125 K/uL (156-360)
[2016-05-01 18:43] LABS: INTER. NORMALIZED RATIO 2.1; PROTHROMBIN TIME 22.3 (9.2-11.2)
[2016-05-01 21:03] LABS: BASE EXCESS 1.9 mEq/L (-3 to +3); BICARBONATE 26.6 mEq/L (22-26); CARBOXY HGB 1.6 % (0-5); METHEMOGLOBIN 1.5 % (0-1.5); PCO2 41 mm Hg (35-45); PO2 224 mm Hg (80-100); SITE RB; pH 7.42 (7.35-7.45)
[2016-05-01 21:04] LABS: COMMENTS - BLOOD GASES C+; DEVICE NRBM; FI02 100 %; O2 FLOW 15 L/MIN
[2016-05-01 21:34] LABS: ANION GAP 12 MEQ/L (2-14); CHLORIDE 96 MEQ/L (99-109); POTASSIUM 5.3 MEQ/L (3.7-5.4); SAMPLE HEMOLYSIS CHECK 0; SAMPLE ICTERIC CHECK 0; SAMPLE LIPEMIA CHECK 0; SODIUM 137 MEQ/L (136-147)
[2016-05-01 21:40] LABS: GFR ESTIMATE (CALCULATED) 11 mL/min/; GLUCOSE 161 mg/dL (70-99); UREA NITROGEN (BUN) 27 mg/dL (9-23)
[2016-05-01 21:44] LABS: TROP-I INTERPRETATION NEGATIVE; TROPONIN-I 0.08 ng/mL (0.0-0.30)
[2016-05-01 21:48] LABS: HEMATOCRIT 43.5 % (38.0-50.0); MCH 27.3 PG (29.0-34.0); MCHC 32.9 G/DL (30.0-36.0); MCV 83.2 FL (86-99); PLATELET COUNT 120 K/uL (156-360); RBC DIS.WIDTH-CV 19.4 % (11.8-14.6); RBC DIS.WIDTH-SD 55.4 % (39-53); RED BLOOD COUNT 5.23 M/uL (4.00-5.50); WHITE BLOOD COUNT 6.6 K/uL (4.1-10.2)
[2016-05-01 22:56] LABS: METH RESISTANT S AUREUS PCR POSITIVE (NEGATIVE)
[2016-05-01 22:59] LABS: PROBE CHECK PASS
[2016-05-02] VITALS (8 sets, daily range): BP systolic 97–125; BP diastolic 42–65
[2016-05-02 06:30] LABS: INTER. NORMALIZED RATIO 2.4
[2016-05-02 06:32] LABS: ANION GAP 15 MEQ/L (2-14); CHLORIDE 97 MEQ/L (99-109); GFR ESTIMATE (CALCULATED) 10 mL/min/; GLUCOSE 133 mg/dL (70-99); MAGNESIUM 2.2 mg/dl (1.3-2.7); POTASSIUM 5.3 MEQ/L (3.7-5.4); SAMPLE HEMOLYSIS CHECK 0; SAMPLE ICTERIC CHECK 0; SAMPLE LIPEMIA CHECK 0; SODIUM 137 MEQ/L (136-147); UREA NITROGEN (BUN) 30 mg/dL (9-23)
[2016-05-02 06:51] LABS: EOSINOPHIL (%) 1.6 % (0-5); EOSINOPHIL COUNT 0.1 K/uL (0-0.3); HEMATOCRIT 40.1 % (38.0-50.0); IMMATURE GRANULOCYTE (%) 0.2 % (0.0-0.7); MCH 27.9 PG (29.0-34.0); MCHC 33.7 G/DL (30.0-36.0); MCV 82.9 FL (86-99); MONOCYTE (%) 6.2 % (3-12); MONOCYTE COUNT 0.3 K/uL (0-0.8); NEUTROPHIL (%) 73.2 % (45-76); NEUTROPHIL COUNT 3.8 K/uL (1.8-6.4); RBC DIS.WIDTH-CV 19.7 % (11.8-14.6); RBC DIS.WIDTH-SD 55.9 % (39-53); RED BLOOD COUNT 4.84 M/uL (4.00-5.50); WHITE BLOOD COUNT 5.2 K/uL (4.1-10.2)
[2016-05-02 07:24] LABS: PLAT.SUFFICIENCY ADEQUATE
[2016-05-02 07:28] LABS: PLATELET COUNT UNABLE TO REPORT K/uL (156-360)
[2016-05-02 12:44] LABS: POINT-OF-CARE METER ID UU13113803
[2016-05-02 16:56] LABS: POINT-OF-CARE METER ID UU13113803
[2016-05-03 03:41] VITALS: BP 124/78
[2016-05-03 07:00] VITALS: BP 118/58
[2016-05-03 07:24] LABS: POINT-OF-CARE METER ID UU13113781
[2016-05-03 10:57] LABS: POINT-OF-CARE METER ID UU13113781
[2016-05-03 12:14] VITALS: BP 112/57
[2016-05-03 12:50] LABS: INTER. NORMALIZED RATIO 3.3; PROTHROMBIN TIME 35.2 (9.2-11.2)
[2016-05-03 13:09] LABS: ALKALINE PHOSPHATASE 121 IU/L (3-129); ANION GAP 17 MEQ/L (2-14); CHLORIDE 96 MEQ/L (99-109); GFR ESTIMATE (CALCULATED) 9 mL/min/; GLUCOSE 174 mg/dL (70-99); MAGNESIUM 2.3 mg/dl (1.3-2.7); POTASSIUM 5.4 MEQ/L (3.7-5.4); SAMPLE HEMOLYSIS CHECK 1; SAMPLE ICTERIC CHECK 0; SAMPLE LIPEMIA CHECK 0; SODIUM 135 MEQ/L (136-147); TOTAL BILIRUBIN 2.4 MG/DL (0.0-1.0); UREA NITROGEN (BUN) 37 mg/dL (9-23)
[2016-05-03 13:10] LABS: EOSINOPHIL COUNT 0.1 K/uL (0-0.3); HEMATOCRIT 40.2 % (38.0-50.0); IMMATURE GRANULOCYTE (%) 0.2 % (0.0-0.7); MCHC 32.6 G/DL (30.0-36.0); MCV 82.9 FL (86-99); MONOCYTE (%) 5.7 % (3-12); MONOCYTE COUNT 0.3 K/uL (0-0.8); NEUTROPHIL (%) 73.7 % (45-76); RBC DIS.WIDTH-CV 19.6 % (11.8-14.6); RBC DIS.WIDTH-SD 55.7 % (39-53); RED BLOOD COUNT 4.85 M/uL (4.00-5.50); WHITE BLOOD COUNT 5.4 K/uL (4.1-10.2)
[2016-05-03 14:03] LABS: DIGOXIN 1.8 ng/mL (0.8-2.0)
[2016-05-03 14:21] LABS: PLAT.SUFFICIENCY DECREASED; USER ID SDF
[2016-05-03 14:25] LABS: PLATELET COUNT 124 K/uL (156-360)
[2016-05-03 17:45] VITALS: BP 116/58
[2016-05-03 17:45] LABS: POINT-OF-CARE METER ID UU13113781
[2016-05-03 20:30] VITALS: BP 114/62
[2016-05-03 22:45] VITALS: BP 119/65
[2016-05-04 04:25] VITALS: BP 99/52
[2016-05-04 07:05] LABS: INTER. NORMALIZED RATIO 3.3; PROTHROMBIN TIME 35.1 (9.2-11.2)
[2016-05-04 07:18] LABS: ANION GAP 12 MEQ/L (2-14); CHLORIDE 99 MEQ/L (99-109); GFR ESTIMATE (CALCULATED) 11 mL/min/; GLUCOSE 120 mg/dL (70-99); MAGNESIUM 2.1 mg/dl (1.3-2.7); POTASSIUM 4.6 MEQ/L (3.7-5.4); SAMPLE HEMOLYSIS CHECK 0; SAMPLE ICTERIC CHECK 0; SAMPLE LIPEMIA CHECK 0; SODIUM 139 MEQ/L (136-147); UREA NITROGEN (BUN) 25 mg/dL (9-23)
[2016-05-04 07:29] LABS: EOSINOPHIL (%) 1.8 % (0-5); EOSINOPHIL COUNT 0.1 K/uL (0-0.3); HEMATOCRIT 36.6 % (38.0-50.0); LYMPHOCYTE COUNT 0.6 K/uL (1.0-2.8); MCH 28.4 PG (29.0-34.0); MCHC 33.9 G/DL (30.0-36.0); MCV 83.8 FL (86-99); MONOCYTE (%) 6.6 % (3-12); MONOCYTE COUNT 0.3 K/uL (0-0.8); NEUTROPHIL (%) 74.8 % (45-76); NEUTROPHIL COUNT 2.8 K/uL (1.8-6.4); RBC DIS.WIDTH-CV 19.7 % (11.8-14.6); RBC DIS.WIDTH-SD 56.9 % (39-53); RED BLOOD COUNT 4.37 M/uL (4.00-5.50); WHITE BLOOD COUNT 3.8 K/uL (4.1-10.2)
[2016-05-04 07:33] LABS: PLAT.SUFFICIENCY DECREASED; PLATELET COUNT 102 K/uL (156-360)
[2016-05-04 07:50] LABS: DIGOXIN 1.6 ng/mL (0.8-2.0)
[2016-05-04 09:00] VITALS: BP 98/50
[2016-05-04 12:30] VITALS: BP 106/48
[2016-05-04 16:25] VITALS: BP 113/54
[2016-05-04 19:15] VITALS: BP 110/56
[2016-05-04 21:37] LABS: POINT-OF-CARE METER ID UU13113698
[2016-05-04 23:30] VITALS: BP 124/53
[2016-05-05 04:30] VITALS: BP 117/62
[2016-05-05 07:48] LABS: POINT-OF-CARE METER ID UU14174216; POINT-OF-CARE USER ID NUTSLF44
[2016-05-05 09:01] LABS: PROTHROMBIN TIME 31.1 (9.2-11.2)
[2016-05-05 09:14] LABS: EOSINOPHIL (%) 1.5 % (0-5); EOSINOPHIL COUNT 0.1 K/uL (0-0.3); HEMATOCRIT 37.8 % (38.0-50.0); IMMATURE GRANULOCYTE (%) 0.3 % (0.0-0.7); LYMPHOCYTE COUNT 0.7 K/uL (1.0-2.8); MCH 27.4 PG (29.0-34.0); MCHC 33.3 G/DL (30.0-36.0); MCV 82.2 FL (86-99); MONOCYTE (%) 7.1 % (3-12); MONOCYTE COUNT 0.3 K/uL (0-0.8); NEUTROPHIL (%) 72.2 % (45-76); NEUTROPHIL COUNT 2.8 K/uL (1.8-6.4); RBC DIS.WIDTH-CV 19.8 % (11.8-14.6); RBC DIS.WIDTH-SD 55.1 % (39-53); WHITE BLOOD COUNT 3.9 K/uL (4.1-10.2)
[2016-05-05 09:24] LABS: DIGOXIN 1.6 ng/mL (0.8-2.0)
[2016-05-05 09:40] LABS: PLAT.SUFFICIENCY DECREASED; PLATELET COUNT 110 K/uL (156-360); USER ID CCL
[2016-05-05 10:11] LABS: ANION GAP 13 MEQ/L (2-14); CHLORIDE 98 MEQ/L (99-109); GFR ESTIMATE (CALCULATED) 10 mL/min/; GLUCOSE 128 mg/dL (70-99); MAGNESIUM 2.1 mg/dl (1.3-2.7); POTASSIUM 4.5 MEQ/L (3.7-5.4); SAMPLE HEMOLYSIS CHECK 0; SAMPLE ICTERIC CHECK 0; SAMPLE LIPEMIA CHECK 0; SODIUM 137 MEQ/L (136-147); UREA NITROGEN (BUN) 32 mg/dL (9-23)
[2016-05-05 14:25] VITALS: BP 125/67
[2016-05-05 17:08] LABS: POINT-OF-CARE METER ID UU14174216; POINT-OF-CARE USER ID NUTSLF44
[2016-05-05 20:00] VITALS: BP 123/62
[2016-05-05 21:12] LABS: POINT-OF-CARE METER ID UU14174216
[2016-05-05 23:55] VITALS: BP 119/56
[2016-05-06] VITALS (9 sets, daily range): BP systolic 80–141; BP diastolic 0–82
[2016-05-06 07:26] LABS: INTER. NORMALIZED RATIO 2.7; PROTHROMBIN TIME 28.8 (9.2-11.2)
[2016-05-06 07:37] LABS: ANION GAP 14 MEQ/L (2-14); CHLORIDE 97 MEQ/L (99-109); MAGNESIUM 2.2 mg/dl (1.3-2.7); SAMPLE HEMOLYSIS CHECK 1; SAMPLE ICTERIC CHECK 0; SAMPLE LIPEMIA CHECK 0; SODIUM 136 MEQ/L (136-147)
[2016-05-06 07:43] LABS: POINT-OF-CARE METER ID UU13113698
[2016-05-06 07:46] LABS: GFR ESTIMATE (CALCULATED) 12 mL/min/; GLUCOSE 134 mg/dL (70-99); UREA NITROGEN (BUN) 24 mg/dL (9-23)
[2016-05-06 11:41] LABS: POINT-OF-CARE METER ID UU13113698
[2016-05-06 12:35] LABS: EOSINOPHIL (%) 1.2 % (0-5); EOSINOPHIL COUNT 0.1 K/uL (0-0.3); HEMATOCRIT 39.3 % (38.0-50.0); IMMATURE GRANULOCYTE (%) 0.2 % (0.0-0.7); LYMPHOCYTE COUNT 0.9 K/uL (1.0-2.8); MCH 27.9 PG (29.0-34.0); MCHC 33.8 G/DL (30.0-36.0); MCV 82.6 FL (86-99); MONOCYTE (%) 7.8 % (3-12); MONOCYTE COUNT 0.4 K/uL (0-0.8); NEUTROPHIL (%) 71.3 % (45-76); NEUTROPHIL COUNT 3.5 K/uL (1.8-6.4); RBC DIS.WIDTH-CV 20.2 % (11.8-14.6); RBC DIS.WIDTH-SD 56.9 % (39-53); RED BLOOD COUNT 4.76 M/uL (4.00-5.50); WHITE BLOOD COUNT 4.9 K/uL (4.1-10.2)
[2016-05-06 12:43] LABS: PLAT.SUFFICIENCY DECREASED; PLATELET COUNT 111 K/uL (156-360); USER ID STC
[2016-05-06 16:44] LABS: POINT-OF-CARE METER ID UU13113698
[2016-05-07 04:00] VITALS: BP 132/65
[2016-05-07 07:20] VITALS: BP 118/51
[2016-05-07 08:11] LABS: INTER. NORMALIZED RATIO 2.9; PROTHROMBIN TIME 30.2 (9.2-11.2)
[2016-05-07 08:19] LABS: ANION GAP 13 MEQ/L (2-14); CHLORIDE 99 MEQ/L (99-109); GFR ESTIMATE (CALCULATED) 10 mL/min/; GLUCOSE 111 mg/dL (70-99); MAGNESIUM 2.2 mg/dl (1.3-2.7); POTASSIUM 4.7 MEQ/L (3.7-5.4); SAMPLE HEMOLYSIS CHECK 0; SAMPLE ICTERIC CHECK 0; SAMPLE LIPEMIA CHECK 0; SODIUM 137 MEQ/L (136-147); UREA NITROGEN (BUN) 31 mg/dL (9-23)
[2016-05-07 08:21] LABS: EOSINOPHIL (%) 2.1 % (0-5); EOSINOPHIL COUNT 0.1 K/uL (0-0.3); HEMATOCRIT 37.9 % (38.0-50.0); IMMATURE GRANULOCYTE (%) 0.2 % (0.0-0.7); LYMPHOCYTE COUNT 0.8 K/uL (1.0-2.8); MCH 27.4 PG (29.0-34.0); MCHC 33.2 G/DL (30.0-36.0); MCV 82.4 FL (86-99); MONOCYTE (%) 7.3 % (3-12); MONOCYTE COUNT 0.3 K/uL (0-0.8); NEUTROPHIL (%) 71.6 % (45-76); NEUTROPHIL COUNT 3.1 K/uL (1.8-6.4); RBC DIS.WIDTH-SD 56.7 % (39-53); WHITE BLOOD COUNT 4.3 K/uL (4.1-10.2)
[2016-05-07 08:42] LABS: PLAT.SUFFICIENCY DECREASED; PLATELET COUNT 104 K/uL (156-360); USER ID CL
[2016-05-07] MEDS ORDERED: COUMADIN2 MG PO (16:16)
[2016-05-07] MEDS ORDERED: MIDODRINE HCL5 MG PO (16:16)
[2016-05-07] MEDS ORDERED: NOVOLOG PE100 UNITS/ SC (16:16)
[2016-05-07] MEDS ORDERED: ASPIR-LOW81 MG PO (16:16)
[2016-05-07 17:00] VITALS: BP 96/57
== END 2016-05-07 18:31 | DRG 291 ==
LOC: EME → EDBD 02:27 → 5SOUTH 05:46 → 4EAST 05:46 → EDOF 05:46 → 4WEST 05:46 → 5SOUTH 04-30 00:04 → 4WEST 05-01 21:29 → 4EAST 05-02 23:16
PROVIDERS: Emergency Medicine; Hospitalist; Internal Medicine; Internal Medicine Cardiovascular Disease; Internal Medicine Critical Care Medicine; Internal Medicine Nephrology; Physician Assistant Medical; Student in an Organized Health Care Education/Training Program
PROC: 04HK33Z Insertion of Infusion Device into Right Femoral Artery, Percutaneous Approach (ICD-10-PCS; principal; 2016-04-18)
PROC: 5A1945Z Respiratory Ventilation, 24-96 Consecutive Hours (ICD-10-PCS; principal; 2016-04-18)
PROC: 5A1D60Z (ICD-10-PCS; principal; 2016-04-18)
PROC: 0BH18EZ Insertion of Endotracheal Airway into Trachea, Via Natural or Artificial Opening Endoscopic (ICD-10-PCS; principal; 2016-04-18)
PROC: 5A2204Z Restoration of Cardiac Rhythm, Single (ICD-10-PCS; principal; 2016-04-18)
PROC: 5A09357 Assistance with Respiratory Ventilation, Less than 24 Consecutive Hours, Continuous Positive Airway Pressure (ICD-10-PCS; principal; 2016-04-18)
DX: I50.9 Heart failure, unspecified (principal); N18.6 End stage renal disease; J18.9 Pneumonia, unspecified organism; I46.9 Cardiac arrest, cause unspecified; J96.01 Acute respiratory failure with hypoxia; R57.9 Shock, unspecified; J81.1 Chronic pulmonary edema; E87.3 Alkalosis; I12.0 Hypertensive chronic kidney disease with stage 5 chronic kidney disease or end stage renal disease; I38 Endocarditis, valve unspecified; E87.6 Hypokalemia; I95.9 Hypotension, unspecified; E11.22 Type 2 diabetes mellitus with diabetic chronic kidney disease; E83.39 Other disorders of phosphorus metabolism; E83.51 Hypocalcemia; E87.8 Other disorders of electrolyte and fluid balance, not elsewhere classified; R41.0 Disorientation, unspecified; R00.0 Tachycardia, unspecified; I48.0 Paroxysmal atrial fibrillation; I25.10 Atherosclerotic heart disease of native coronary artery without angina pectoris; D64.9 Anemia, unspecified; I44.30 Unspecified atrioventricular block; L89.322 Pressure ulcer of left buttock, stage 2; S61.401A Unspecified open wound of right hand, initial encounter; Z95.2 Presence of prosthetic heart valve; I73.9 Peripheral vascular disease, unspecified; Z89.512 Acquired absence of left leg below knee; Z87.891 Personal history of nicotine dependence; Z79.82 Long term (current) use of aspirin; Z89.511 Acquired absence of right leg below knee; Y92.9 Unspecified place or not applicable
CPT/HCPCS: 36600; 70450; 71010; 71020; 80048; 80048 91; 80053; 80069; 80076; 80162; 82040; 82140; 82533 91; 82550; 82550 91; 82553; 82607; 82746; 82803; 82948; 83605; 83735; 83880; 84100; 84439; 84443; 84484; 85025; 85025 91; 85027; 85610; 85730; 86706; 87040; 87070; 87205; 87340; 87641; 92526 GN; 92610 GN; 93005; 93306; 94002; 94003; 94010; 94640; 94640 76; 94760; 94799; 95819; 97530 GO; 97530 GP; 99281; 99285; C1751; J0153; J0171; J0456; J0461; J0696; J1160; J1630; J1644; J1815; J2370; J2704; J7030; J7040; J7050

== ENCOUNTER 2016-05-10 22:30 | Inpatient (IN) | payer OTHER ==
[~2016-05-10] VITALS: Ht 177.8 cm; Wt 85.9 kg
[~2016-05-10 22:30] MED LIST changes: +ANTIVERT12.5 MG PO; +ASPIR-LOW81 MG PO; +COZAAR50 MG PO; +DIALYVITE 3,001 EACH PO; +GABAPENTIN100 MG PO; +LANOXIN125 MCG PO; +MIDODRINE HCL5 MG PO; +MORPHINE SULFAT15 M1 PO; +NOVOLOG PE100 UNITS/ SC; +OXYCODONE HCL5 MG PO; +VENTOLIN HFA18 GM IH; +WARFARIN SODIUM1 MG PO
[2016-05-10 22:52] LABS: ANION GAP 12 MEQ/L (2-14); CHLORIDE 94 mEq/L (99-109); CREATININE 5.2 mg/dL (0.6-1.3); GLUCOSE 97 mg/dL (70-99); ISTAT DEVICE 369301; POTASSIUM > 6.0 mEq/L (3.7-5.4); SODIUM 134 mEq/L (136-147); UREA NITROGEN (BUN) 33 mg/dL (9-23)
[2016-05-10 23:15] LABS: ADD MIUA? YES; BILIRUBIN MODERATE; BLOOD LARGE; GLUCOSE (STRIP) NEGATIVE; KETONES TRACE; LEUKOCYTES MODERATE; NITRITE POSITIVE; PH, URINE 6.5 (5-8); PROTEIN (STRIP) >=300; SPECIFIC GRAVITY 1.039 (1.000-1.030)
[2016-05-10 23:16] LABS: COLOR BROWN ((YELLOW))
[2016-05-10 23:27] LABS: AMPHETAMINE NEGATIVE (500 ng/mL); BARBITURATES NEGATIVE (200 ng/mL); BENZODIAZEPINES NEGATIVE (150 ng/mL); COCAINE NEGATIVE (150 ng/mL); INTERNAL CONTROLS VALID? YES; METHADONE NEGATIVE (200 ng/mL); METHAMPHETAMINE NEGATIVE (500 ng/mL); OPIATES (MORPHINE) NEGATIVE (100 ng/mL); OXYCODONE NEGATIVE (100 ng/mL); PHENCYCLIDINE NEGATIVE (25 ng/mL); PROPOXYPHENE NEGATIVE (300 ng/mL); THC CANNABINOIDS NEGATIVE (50 ng/mL); TRICYCLIC ANTIDEPRESSANTS NEGATIVE (300 ng/mL)
[2016-05-10 23:38] LABS: BASE EXCESS 11.9 mEq/L (-3 to +3); BICARBONATE 35.9 mEq/L (22-26); CARBOXY HGB 2.7 % (0-5); COMMENTS - BLOOD GASES C+A+; DEVICE HHFNC; FI02 100 %; METHEMOGLOBIN 1.5 % (0-1.5); O2 FLOW 60 L/MIN; PCO2 43 mm Hg (35-45); PO2 246 mm Hg (80-100); SITE RR; pH 7.53 (7.35-7.45)
[2016-05-10 23:51] LABS: CHLORIDE 95 mEq/L (99-109); SODIUM 139 mEq/L (136-147)
[2016-05-10 23:52] LABS: POTASSIUM 3.7 mEq/L (3.7-5.4)
[2016-05-10 23:53] LABS: GLUCOSE 94 mg/dL (70-99)
[2016-05-10 23:54] LABS: ANION GAP 16 MEQ/L (2-14)
[2016-05-10 23:55] LABS: TROP-I INTERPRETATION INDETERMINATE; TROPONIN-I 0.38 ng/mL (0.0-0.30)
[2016-05-10 23:55] LABS: TOTAL BILIRUBIN 3.6 mg/dL (0.0-1.0)
[2016-05-10 23:57] LABS: ALKALINE PHOSPHATASE 125 IU/L (3-129); GFR ESTIMATE (CALCULATED) 13 mL/min/
[2016-05-10 23:58] LABS: CREATININE 5.5 mg/dL (0.6-1.3); POTASSIUM 3.1 mEq/L (3.7-5.4)
[2016-05-10 23:58] LABS: UREA NITROGEN (BUN) 22 mg/dL (9-23)
[2016-05-10 23:59] LABS: BASOPHIL COUNT 0.1 K/uL (0-0.1); EOSINOPHIL (%) 0.6 % (0-5); IMMATURE GRANULOCYTE (%) 0.2 % (0.0-0.7); IMMATURE GRANULOCYTE COUNT 0.1 K/uL; MONOCYTE (%) 8.7 % (3-12); MONOCYTE COUNT 0.6 K/uL (0-0.8); NEUTROPHIL (%) 74.6 % (45-76); NEUTROPHIL COUNT 4.8 K/uL (1.8-6.4)
[2016-05-11] VITALS (19 sets, daily range): BP systolic 72–119; BP diastolic 37–69
[2016-05-11] LABS: LIPASE 48 U/L (1.0-51.0)
[2016-05-11 00:10] LABS: HEMATOCRIT 39.1 % (38.0-50.0); MCV 82.3 FL (86-99); RBC DIS.WIDTH-CV 20.5 % (11.8-14.6); RED BLOOD COUNT 4.75 M/uL (4.00-5.50); WHITE BLOOD COUNT 6.5 K/uL (4.1-10.2)
[2016-05-11 00:17] LABS: INTER. NORMALIZED RATIO 5.2; PROTHROMBIN TIME 56.3 (9.2-11.2); PTT 52.1 (25-32)
[2016-05-11 00:36] LABS: BACTERIA 3+; CASTS NONE SEEN /LPF; EPITHELIAL CELLS 1+; MUCUS 2+; RED BLOOD CELLS NONE SEEN /HPF (0-5); UCUL ADDED? NO; WHITE BLOOD CELLS NONE SEEN /HPF (0-5)
[2016-05-11 00:37] LABS: CRYSTALS NONE SEEN
[2016-05-11 00:44] LABS: PLATELET COUNT UNABLE TO REPORT K/uL (156-360)
[2016-05-11 00:50] LABS: ICTOTEST NEGATIVE
[2016-05-11 01:36] LABS: BASE EXCESS 13.2 mEq/L (-3 to +3); BICARBONATE 36.7 mEq/L (22-26); CARBOXY HGB 2.2 % (0-5); COMMENTS - BLOOD GASES C+A+; DEVICE NIV; FI02 100 %; METHEMOGLOBIN 1.5 % (0-1.5); MODE SPONT; PCO2 41 mm Hg (35-45); PEEP 5 CM/H20; PO2 411 mm Hg (80-100); PRES. SUPPORT 12 CM/H2O; SITE RR; TOTAL RESP RATE 32 resp/min; pH 7.56 (7.35-7.45)
[2016-05-11] MEDS ORDERED: MIDODRINE HCL10 MG PO (01:44)
[2016-05-11] MEDS ORDERED: NEPHRO-VITE,1 TABLET PO (01:45)
[2016-05-11] MEDS ORDERED: ANTIVERT12.5 MG PO (01:46)
[2016-05-11] MEDS ORDERED: ADULT LOW DOSE81 M1 PO (01:46)
[2016-05-11] MEDS ORDERED: COZAAR25 MG PO (01:46)
[2016-05-11] MEDS ORDERED: COUMADIN2 MG PO (01:47)
[2016-05-11] MEDS ORDERED: ALBUTEROL2.5 MG/3 M IH (01:48)
[2016-05-11] MEDS ORDERED: MILK OF MAGN PO (01:50)
[2016-05-11] MEDS ORDERED: DULCOLAX10 MG PR (01:50)
[2016-05-11] MEDS ORDERED: FLEET ENEMA EX230 ML PR (01:51)
[2016-05-11 03:22] LABS: BICARBONATE 34.5 mEq/L (22-26); CARBOXY HGB 2.2 % (0-5); COMMENTS - BLOOD GASES C+A+; DEVICE VENTILATOR; FI02 100 %; MECHANICAL RATE 16 resp/min; METHEMOGLOBIN 1.1 % (0-1.5); MODE AC; PCO2 36 mm Hg (35-45); PO2 146 mm Hg (80-100); SITE RR
[2016-05-11 03:23] LABS: PEEP 5 CM/H20; TIDAL VOLUME 550 ML; TOTAL RESP RATE 20 resp/min; pH 7.59 (7.35-7.45)
[2016-05-11 05:37] LABS: METH RESISTANT S AUREUS PCR POSITIVE (NEGATIVE)
[2016-05-11 05:39] LABS: PROBE CHECK PASS
[2016-05-11 06:08] LABS: PROTHROMBIN TIME 56.9 (9.2-11.2)
[2016-05-11 06:13] LABS: INTER. NORMALIZED RATIO 5.3
[2016-05-11 07:03] LABS: BASE EXCESS 11.8 mEq/L (-3 to +3); BICARBONATE 34.8 mEq/L (22-26); CARBOXY HGB 2.3 % (0-5); METHEMOGLOBIN 1.3 % (0-1.5); PCO2 38 mm Hg (35-45)
[2016-05-11 07:04] LABS: COMMENTS - BLOOD GASES A+C+; DEVICE 840; FI02 40 %; MECHANICAL RATE 12 resp/min; MODE AC; PEEP 5 CM/H20; PO2 67 mm Hg (80-100); SITE RR; TIDAL VOLUME 500 ML; TOTAL RESP RATE 12 resp/min; pH 7.57 (7.35-7.45)
[2016-05-11 07:19] LABS: TROP-I INTERPRETATION INDETERMINATE; TROPONIN-I 0.46 ng/mL (0.0-0.30)
[2016-05-11 14:20] LABS: CARBOXY HGB 2.4 % (0-5); METHEMOGLOBIN 1.4 % (0-1.5)
[2016-05-11 14:21] LABS: BASE EXCESS 12.1 mEq/L (-3 to +3); BICARBONATE 35.9 mEq/L (22-26); PCO2 42 mm Hg (35-45); PO2 69 mm Hg (80-100); pH 7.54 (7.35-7.45)
[2016-05-11 14:22] LABS: COMMENTS - BLOOD GASES A+C+; DEVICE 840; FI02 40 %; MECHANICAL RATE 12 resp/min; MODE AC; SITE RR; TIDAL VOLUME 500 ML; TOTAL RESP RATE 19 resp/min
[2016-05-11 14:23] LABS: PEEP 5 CM/H20
[2016-05-11 14:39] LABS: ANION GAP 11 MEQ/L (2-14); CHLORIDE 97 MEQ/L (99-109); GFR ESTIMATE (CALCULATED) 12 mL/min/; GLUCOSE 68 mg/dL (70-99); POTASSIUM 3.4 MEQ/L (3.7-5.4); SAMPLE HEMOLYSIS CHECK 0; SAMPLE ICTERIC CHECK 1; SAMPLE LIPEMIA CHECK 0; SODIUM 141 MEQ/L (136-147); UREA NITROGEN (BUN) 27 mg/dL (9-23)
[2016-05-12] VITALS (24 sets, daily range): BP systolic 82–108; BP diastolic 37–56
[2016-05-12 13:08] LABS: PROTHROMBIN TIME 54.2 (9.2-11.2)
[2016-05-12 13:09] LABS: INTER. NORMALIZED RATIO 5.1
[2016-05-12 13:20] LABS: ALKALINE PHOSPHATASE 81 IU/L (3-129); ANION GAP 13 MEQ/L (2-14); CHLORIDE 98 MEQ/L (99-109); DIRECT BILIRUBIN 1.7 mg/dL (0.0-0.3); GFR ESTIMATE (CALCULATED) 10 mL/min/; GLUCOSE 67 mg/dL (70-99); MAGNESIUM 1.9 mg/dl (1.3-2.7); POTASSIUM 3.2 MEQ/L (3.7-5.4); SAMPLE HEMOLYSIS CHECK 0; SAMPLE ICTERIC CHECK 0; SAMPLE LIPEMIA CHECK 0; SODIUM 141 MEQ/L (136-147); TOTAL BILIRUBIN 3.1 MG/DL (0.0-1.0); UREA NITROGEN (BUN) 32 mg/dL (9-23)
[2016-05-12 13:22] LABS: VANCOMYCIN, TROUGH 6.8 MCG/ML (10-20)
[2016-05-12 13:38] LABS: HEMATOCRIT 32.6 % (38.0-50.0); MCH 27.2 PG (29.0-34.0); MCHC 32.5 G/DL (30.0-36.0); MCV 83.6 FL (86-99); RBC DIS.WIDTH-CV 20.1 % (11.8-14.6)
[2016-05-12 14:27] LABS: PLATELET COUNT 82 K/uL (156-360); WHITE BLOOD COUNT 3.8 K/uL (4.1-10.2)
[2016-05-12 18:55] LABS: C DIFF TOXIN NEGATIVE (NEGATIVE)
[2016-05-12 18:57] LABS: PROBE CHECK PASS; SPECIMEN PROCESSING CONTROL PASS
[2016-05-13] VITALS (24 sets, daily range): BP systolic 74–99; BP diastolic 30–47
[2016-05-13 04:06] LABS: EOSINOPHIL (%) 2.9 % (0-5); EOSINOPHIL COUNT 0.1 K/uL (0-0.3); IMMATURE GRANULOCYTE (%) 1.8 % (0.0-0.7); IMMATURE GRANULOCYTE COUNT 0.7 K/uL; LYMPHOCYTE COUNT 0.7 K/uL (1.0-2.8); MONOCYTE (%) 13.3 % (3-12); MONOCYTE COUNT 0.5 K/uL (0-0.8); NEUTROPHIL (%) 62.7 % (45-76); NEUTROPHIL COUNT 2.4 K/uL (1.8-6.4)
[2016-05-13 04:14] LABS: CHLORIDE 102 mEq/L (99-109); POTASSIUM 3.7 mEq/L (3.7-5.4); SODIUM 142 mEq/L (136-147)
[2016-05-13 04:15] LABS: MAGNESIUM 1.8 mg/dL (1.3-2.7)
[2016-05-13 04:17] LABS: PROTHROMBIN TIME 56.7 (9.2-11.2)
[2016-05-13 04:18] LABS: ANION GAP 13 MEQ/L (2-14); TOTAL BILIRUBIN 2.9 mg/dL (0.0-1.0)
[2016-05-13 04:20] LABS: ALKALINE PHOSPHATASE 99 IU/L (3-129); GFR ESTIMATE (CALCULATED) 14 mL/min/; INTER. NORMALIZED RATIO 5.3
[2016-05-13 04:21] LABS: GLUCOSE 84 mg/dL (70-99); UREA NITROGEN (BUN) 23 mg/dL (9-23)
[2016-05-13 05:21] LABS: BASE EXCESS 5.8 mEq/L (-3 to +3); CARBOXY HGB 3.2 % (0-5); METHEMOGLOBIN 1.3 % (0-1.5); PCO2 40 mm Hg (35-45); pH 7.48 (7.35-7.45)
[2016-05-13 05:23] LABS: BICARBONATE 29.8 mEq/L (22-26); COMMENTS - BLOOD GASES A+C; DEVICE VENT; FI02 30 %; MODE SPONT; PEEP 5 CM/H20; PO2 52 mm Hg (80-100); PRES. SUPPORT 7 CM/H2O; SITE LR; TOTAL RESP RATE 38 resp/min
[2016-05-13 06:15] LABS: ANISOCYTOSIS 2+; HEMATOCRIT 35.2 % (38.0-50.0); HEMATOLOGY COMMENT 1 REV; MACROCYTES 1+; MCH 27.1 PG (29.0-34.0); MCHC 31.8 G/DL (30.0-36.0); OVALOCYTES 1+; PLAT.SUFFICIENCY DECREASED; PLATELET COUNT 68 K/uL (156-360); RBC DIS.WIDTH-SD 61.2 % (39-53); RED BLOOD COUNT 4.14 M/uL (4.00-5.50); TEAR DROP CELLS FEW; WHITE BLOOD COUNT 3.8 K/uL (4.1-10.2)
[2016-05-14] VITALS (24 sets, daily range): BP systolic 74–94; BP diastolic 29–41
[2016-05-14 08:18] LABS: ALKALINE PHOSPHATASE 75 IU/L (3-129); ANION GAP 14 MEQ/L (2-14); CHLORIDE 102 MEQ/L (99-109); DIRECT BILIRUBIN 1.3 mg/dL (0.0-0.3); GFR ESTIMATE (CALCULATED) 12 mL/min/; GLUCOSE 99 mg/dL (70-99); POTASSIUM 3.8 MEQ/L (3.7-5.4); SAMPLE HEMOLYSIS CHECK 0; SAMPLE ICTERIC CHECK 0; SAMPLE LIPEMIA CHECK 0; SODIUM 141 MEQ/L (136-147); TOTAL BILIRUBIN 2.5 MG/DL (0.0-1.0); UREA NITROGEN (BUN) 30 mg/dL (9-23)
[2016-05-14 08:23] LABS: PROTHROMBIN TIME 47.8 (9.2-11.2)
[2016-05-14 08:24] LABS: INTER. NORMALIZED RATIO 4.5; PTT 77.3 (25-32)
[2016-05-14 08:31] LABS: EOSINOPHIL (%) 3.8 % (0-5); EOSINOPHIL COUNT 0.2 K/uL (0-0.3); HEMATOCRIT 36.1 % (38.0-50.0); IMMATURE GRANULOCYTE (%) 0.5 % (0.0-0.7); LYMPHOCYTE COUNT 0.9 K/uL (1.0-2.8); MCH 27.4 PG (29.0-34.0); MCHC 32.4 G/DL (30.0-36.0); MCV 84.5 FL (86-99); MONOCYTE (%) 8.6 % (3-12); MONOCYTE COUNT 0.3 K/uL (0-0.8); NEUTROPHIL (%) 64.5 % (45-76); NEUTROPHIL COUNT 2.5 K/uL (1.8-6.4); RBC DIS.WIDTH-CV 20.5 % (11.8-14.6); RBC DIS.WIDTH-SD 61.6 % (39-53); RED BLOOD COUNT 4.27 M/uL (4.00-5.50); WHITE BLOOD COUNT 3.9 K/uL (4.1-10.2)
[2016-05-14 08:51] LABS: PLAT.SUFFICIENCY DECREASED
[2016-05-14 08:54] LABS: PLATELET COUNT UNABLE TO REPORT K/uL (156-360)
[2016-05-15] VITALS (19 sets, daily range): BP systolic 81–105; BP diastolic 31–50
== END 2016-05-16 01:50 | DRG 870 ==
LOC: EME → EDBD 22:30 → EDOF 05-11 01:15 → 4WEST 05-11 01:15 → EDOF 05-11 03:04 → 4WEST 05-11 03:34 → 5EAST 05-15 17:37
PROVIDERS: Emergency Medicine; Family Medicine; Internal Medicine Critical Care Medicine; Internal Medicine Nephrology; Obstetrics & Gynecology
PROC: 0BH17EZ Insertion of Endotracheal Airway into Trachea, Via Natural or Artificial Opening (ICD-10-PCS; principal; 2016-05-11)
PROC: 5A09358 Assistance with Respiratory Ventilation, Less than 24 Consecutive Hours, Intermittent Positive Airway Pressure (ICD-10-PCS; principal; 2016-05-11)
PROC: 5A1955Z Respiratory Ventilation, Greater than 96 Consecutive Hours (ICD-10-PCS; principal; 2016-05-11)
PROC: 5A1D60Z (ICD-10-PCS; 2016-05-12)
DX: A41.9 Sepsis, unspecified organism (principal); J69.0 Pneumonitis due to inhalation of food and vomit; J96.01 Acute respiratory failure with hypoxia; G93.40 Encephalopathy, unspecified; N18.6 End stage renal disease; I12.0 Hypertensive chronic kidney disease with stage 5 chronic kidney disease or end stage renal disease; E87.3 Alkalosis; I24.8 Other forms of acute ischemic heart disease; R65.20 Severe sepsis without septic shock; E87.5 Hyperkalemia; E87.6 Hypokalemia; R79.1 Abnormal coagulation profile; I48.91 Unspecified atrial fibrillation; I25.10 Atherosclerotic heart disease of native coronary artery without angina pectoris; E11.22 Type 2 diabetes mellitus with diabetic chronic kidney disease; I25.5 Ischemic cardiomyopathy; I27.2 Other secondary pulmonary hypertension; J98.4 Other disorders of lung; I73.9 Peripheral vascular disease, unspecified; R19.7 Diarrhea, unspecified; Y95 Nosocomial condition; Z51.5 Encounter for palliative care; Z66 Do not resuscitate; Z99.2 Dependence on renal dialysis; Z89.511 Acquired absence of right leg below knee; Z89.512 Acquired absence of left leg below knee; Z95.2 Presence of prosthetic heart valve; Z87.891 Personal history of nicotine dependence; Z79.01 Long term (current) use of anticoagulants
CPT/HCPCS: 31500; 36600; 70450; 71010; 76705; 80047; 80048; 80053; 80076; 80202; 81003; 82140; 82803; 83605; 83690; 83735; 84100; 84484; 84999; 85025; 85027; 85610; 85730; 87040; 87070; 87077; 87081; 87205; 87493; 87641; 93005; 93308; 94002; 94003; 94640; 94640 76; 94760; 94799; 99202; 99281; 99285; J0692; J1120; J2270; J2543; J2704; J2765; J3370; J3475; J7030; J7050; J7120; P9047; S0028